=== PATIENT | male | born 1945 | race Caucasian/White ===

== ENCOUNTER 2019-07-22 11:51 | Inpatient (IN) | payer OTHER ==
[~2019-07-22] VITALS: Ht 187.9 cm; Wt 130.6 kg
[2019-07-22 12:03] VITALS: BP 156/96
[2019-07-22 12:28] LABS: HEMATOCRIT 35.6 % (42.0-52.0); MEAN CELL VOLUME 87.9 fl (80.0-94.0); MEAN CORPUSCULAR HGB 26.4 pg (27.0-31.0); MEAN CORPUSCULAR HGB CONC 30.1 g/dl (33.0-37.0); MEAN PLATELET VOLUME 9.1 fl (9.6-12.3); PLATELET COUNT AUTOMATED 349 10*3/uL (130-400); RED BLOOD COUNT 4.05 10*6/uL (4.50-5.90); RED CELL DISTRI WIDTH 21.8 % (0-14.5); WHITE BLOOD COUNT 14.8 10*3/uL (4.8-10.8)
[2019-07-22 12:38] LABS: ALBUMIN 2.1 gm/dl (3.1-4.5); ALKALINE PHOSPHATASE 118 U/L (45-117); BUN 86 mg/dl (7-24); CHLORIDE 90 mmol/L (98-107); CREATININE 3.76 mg/dL (0.70-1.30); LIPASE 362 U/L (73-393); POTASSIUM 5.9 mmol/L (3.5-5.1); SGOT/AST 17 IU/L (3-35); SGPT/ALT 23 U/L (12-78); SODIUM 126 mmol/L (136-145); TOTAL PROTEIN 7.6 gm/dL (6.4-8.2)
[2019-07-22 12:41] LABS: ACT PARTIAL THROMBO TIME 28.9 SECONDS (20.0-32.1)
[2019-07-22 12:42] LABS: BILIRUBIN NEGATIVE (NEGATIVE); BLOOD 3+ (NEGATIVE); CLARITY CLOUDY (CLEAR); COLOR YELLOW (YELLOW); GLUCOSE NEGATIVE (NEGATIVE); KETONE NEGATIVE (NEGATIVE); LEUKO ESTERASE 3+ (NEGATIVE); NITRITE POSITIVE (NEGATIVE); UROBILINOGEN 0.2 E.U./dl (0.2-1.0)
[2019-07-22 12:43] LABS: TROPONIN I < 0.015 ng/ml (<0.045)
[2019-07-22 12:46] LABS: WBC TNTC wbc/hpf (0-5)
[2019-07-22 12:47] LABS: BACTERIA 4+; RBC TNTC rbc/hpf (0-2)
[2019-07-22 12:49] LABS: TOTAL CELLS COUNTED 100 #CELLS
[2019-07-22 12:55] LABS: PLATELET SUFFICIENCY NORMAL (NORMAL); SCHISTOCYTES FEW
[2019-07-22 15:00] VITALS: BP 128/77
[2019-07-22] MEDS ORDERED: SENSE PAI PO (15:28)
[2019-07-22] MEDS ORDERED: AMMONIUM LACTA227 GM T (15:29)
[2019-07-22] MEDS ORDERED: BISACODYL10 MG R (15:30)
[2019-07-22] MEDS ORDERED: AMINOPHYLLIN200 MG PO (15:31)
[2019-07-22] MEDS ORDERED: FLEET ENEMA EX230 M1 R (15:31)
[2019-07-22] MEDS ORDERED: HEPARIN SO5000 UNIT4 SC (15:32)
[2019-07-22] MEDS ORDERED: LASIX40 MG PO (15:32)
[2019-07-22] MEDS ORDERED: LEVOXYL137 MCG PO (15:34)
[2019-07-22] MEDS ORDERED: Ipratropium Brom3 ML INH (15:34)
[2019-07-22] MEDS ORDERED: METOPROLOL25 MG PO (15:35)
[2019-07-22] MEDS ORDERED: PHILLIPS M400 MG/51 PO (15:36)
[2019-07-22] MEDS ORDERED: MOXIFLOXACIN3 ML OU (15:37)
[2019-07-22] MEDS ORDERED: MIRALAX119 GM PO (15:38)
[2019-07-22] MEDS ORDERED: OMEPRAZOLE40 MG PO (15:38)
[2019-07-22] MEDS ORDERED: PROMOD 946 ML946 ML PO (15:39)
[2019-07-22] MEDS ORDERED: TWOCAL-HN 240 ML8 OZ PEG (15:40)
[2019-07-22 16:00] VITALS: BP 132/84
[2019-07-22 16:21] LABS: CREATININE 3.65 mg/dL (0.70-1.30); POTASSIUM 5.7 mmol/L (3.5-5.1)
[2019-07-22 16:22] LABS: ABG BASE EXCESS 4.3 mmol/L (-2.0-2.0); ARTERIAL BLOOD GAS PH 7.416 (7.35-7.45)
[2019-07-22 17:46] LABS: BILIRUBIN NEGATIVE (NEGATIVE); BLOOD 3+ (NEGATIVE); CLARITY SL CLOUDY (CLEAR); COLOR YELLOW (YELLOW); GLUCOSE NEGATIVE (NEGATIVE); KETONE NEGATIVE (NEGATIVE); LEUKO ESTERASE 3+ (NEGATIVE); NITRITE POSITIVE (NEGATIVE); UROBILINOGEN 0.2 E.U./dl (0.2-1.0)
[2019-07-22 17:52] LABS: BACTERIA 3+; RBC TNTC rbc/hpf (0-2); WBC TNTC wbc/hpf (0-5)
[2019-07-22 19:56] LABS: ABG BASE EXCESS 5.1 mmol/L (-2.0-2.0); ARTERIAL BLOOD GAS PH 7.441 (7.35-7.45)
[2019-07-22 20:00] VITALS: BP 122/81
[2019-07-23] VITALS: BP 110/65; BP 116/73
[2019-07-23 04:00] VITALS: BP 106/66
[2019-07-23 05:10] LABS: CREATININE 2.86 mg/dL (0.70-1.30)
[2019-07-23 05:21] LABS: THYROID STIM HORMONE (HS) 2.44 uIU/ml (0.358-4.75)
[2019-07-23 05:24] LABS: POTASSIUM 4.7 mmol/L (3.5-5.1)
[2019-07-23 06:05] LABS: HEMATOCRIT 31.3 % (42.0-52.0); MEAN CELL VOLUME 87.7 fl (80.0-94.0); MEAN CORPUSCULAR HGB 25.8 pg (27.0-31.0); MEAN CORPUSCULAR HGB CONC 29.4 g/dl (33.0-37.0); MEAN PLATELET VOLUME 9.7 fl (9.6-12.3); PLATELET COUNT AUTOMATED 358 10*3/uL (130-400); RED BLOOD COUNT 3.57 10*6/uL (4.50-5.90); RED CELL DISTRI WIDTH 22.4 % (0-14.5)
[2019-07-23 06:47] LABS: BURR CELLS FEW; OVALOCYTES FEW; PLATELET SUFFICIENCY NORMAL (NORMAL); POLYCHROMASIA SLIGHT; TOTAL CELLS COUNTED 100 #CELLS
[2019-07-23 06:48] LABS: TARGET CELLS FEW
[2019-07-23 07:24] LABS: ABG BASE EXCESS 7.1 mmol/L (-2.0-2.0); ARTERIAL BLOOD GAS PH 7.484 (7.35-7.45)
[2019-07-23 08:00] VITALS: BP 106/70
[2019-07-23 08:59] LABS: VITAMIN D, 25-HYDROXY 55.4 ng/mL (30-100)
[2019-07-23 11:06] LABS: ARTERIAL BLOOD GAS PH 7.511 (7.35-7.45)
[2019-07-23 12:00] VITALS: BP 125/76
[2019-07-23 15:21] LABS: ABG BASE EXCESS 7.7 mmol/L (-2.0-2.0); ARTERIAL BLOOD GAS PH 7.548 (7.35-7.45)
[2019-07-23 16:00] VITALS: BP 135/82
[2019-07-23 20:00] VITALS: BP 125/86
[2019-07-24] VITALS: BP 117/87
[2019-07-24 03:17] LABS: HEMATOCRIT 31.9 % (42.0-52.0); MEAN CELL VOLUME 87.4 fl (80.0-94.0); MEAN CORPUSCULAR HGB 25.5 pg (27.0-31.0); MEAN CORPUSCULAR HGB CONC 29.2 g/dl (33.0-37.0); MEAN PLATELET VOLUME 8.7 fl (9.6-12.3); PLATELET COUNT AUTOMATED 362 10*3/uL (130-400); RED BLOOD COUNT 3.65 10*6/uL (4.50-5.90); RED CELL DISTRI WIDTH 22.2 % (0-14.5); WHITE BLOOD COUNT 9.7 10*3/uL (4.8-10.8)
[2019-07-24 03:31] LABS: CREATININE 1.82 mg/dL (0.70-1.30)
[2019-07-24 03:36] LABS: PLATELET SUFFICIENCY NORMAL (NORMAL); TOTAL CELLS COUNTED 100 #CELLS
[2019-07-24 04:00] VITALS: BP 145/69
[2019-07-24 08:00] VITALS: BP 136/85; BP 139/71
[2019-07-24 09:29] LABS: ABG BASE EXCESS 5.5 mmol/L (-2.0-2.0); ARTERIAL BLOOD GAS PH 7.386 (7.35-7.45)
[2019-07-24 12:00] VITALS: BP 122/80
[2019-07-24 16:00] VITALS: BP 126/73
[2019-07-24 20:00] VITALS: BP 136/83
[2019-07-25] VITALS: BP 148/86
[2019-07-25 04:00] VITALS: BP 113/69
[2019-07-25 05:59] LABS: HEMATOCRIT 31.1 % (42.0-52.0); MEAN CELL VOLUME 88.4 fl (80.0-94.0); MEAN CORPUSCULAR HGB 25.9 pg (27.0-31.0); MEAN CORPUSCULAR HGB CONC 29.3 g/dl (33.0-37.0); MEAN PLATELET VOLUME 9.4 fl (9.6-12.3); PLATELET COUNT AUTOMATED 383 10*3/uL (130-400); RED BLOOD COUNT 3.52 10*6/uL (4.50-5.90); RED CELL DISTRI WIDTH 22.2 % (0-14.5); WHITE BLOOD COUNT 9.4 10*3/uL (4.8-10.8)
[2019-07-25 06:25] LABS: CHLORIDE 101 mmol/L (98-107); CREATININE 1.12 mg/dL (0.70-1.30); POTASSIUM 3.6 mmol/L (3.5-5.1); SODIUM 138 mmol/L (136-145)
[2019-07-25 06:28] LABS: BUN 43 mg/dl (7-24)
[2019-07-25 06:44] LABS: OVALOCYTES FEW; PLATELET SUFFICIENCY NORMAL (NORMAL); ROULEAUX SLIGHT; TOTAL CELLS COUNTED 100 #CELLS
[2019-07-25 06:45] LABS: TOXIC GRANULATION SLIGHT
[2019-07-25 08:00] VITALS: BP 100/76
[2019-07-25] MEDS ORDERED: ERTAPENEM1 GM IV (13:18)
[2019-07-25 14:58] LABS: ABG BASE EXCESS 5.6 mmol/L (-2.0-2.0); ARTERIAL BLOOD GAS PH 7.436 (7.35-7.45)
[2019-07-25 16:00] VITALS: BP 129/87
[2019-07-25 20:00] VITALS: BP 129/87; BP 138/66
[2019-07-26] VITALS: BP 132/85
[2019-07-26 04:00] VITALS: BP 134/88
[2019-07-26 06:00] LABS: HEMATOCRIT 32.7 % (42.0-52.0); MEAN CELL VOLUME 89.3 fl (80.0-94.0); MEAN CORPUSCULAR HGB 25.4 pg (27.0-31.0); MEAN CORPUSCULAR HGB CONC 28.4 g/dl (33.0-37.0); MEAN PLATELET VOLUME 8.8 fl (9.6-12.3); PLATELET COUNT AUTOMATED 374 10*3/uL (130-400); RED BLOOD COUNT 3.66 10*6/uL (4.50-5.90); RED CELL DISTRI WIDTH 21.4 % (0-14.5); WHITE BLOOD COUNT 11.2 10*3/uL (4.8-10.8)
[2019-07-26 06:12] LABS: CHLORIDE 100 mmol/L (98-107); CREATININE 0.89 mg/dL (0.70-1.30); POTASSIUM 3.9 mmol/L (3.5-5.1); SODIUM 135 mmol/L (136-145)
[2019-07-26 06:16] LABS: BUN 28 mg/dl (7-24)
[2019-07-26 07:43] LABS: PLATELET SUFFICIENCY NORMAL (NORMAL); POLYCHROMASIA SLIGHT; TOTAL CELLS COUNTED 100 #CELLS; TOXIC GRANULATION SLIGHT
[2019-07-26 08:00] VITALS: BP 133/73
[2019-07-26 12:00] VITALS: BP 105/65
[2019-07-26 16:00] VITALS: BP 122/74
[2019-07-26 20:00] VITALS: BP 127/79
[2019-07-27] VITALS: BP 112/60
[2019-07-27 05:00] VITALS: BP 120/60
[2019-07-27 08:00] VITALS: BP 132/81
[2019-07-27 12:00] VITALS: BP 103/61
[2019-07-27 16:00] VITALS: BP 112/65
[2019-07-27 20:00] VITALS: BP 113/67
[2019-07-28] VITALS: BP 122/57
[2019-07-28 04:00] VITALS: BP 128/64
[2019-07-28 08:00] VITALS: BP 122/75
[2019-07-28 12:00] VITALS: BP 115/58
[2019-07-28 16:00] VITALS: BP 105/61
== END 2019-07-28 17:35 | disposition other institution (70) | DRG 871 ==
LOC: ED 11:51 → EDHOLD 13:25 → ICCU 13:25
PROVIDERS: Emergency Medicine; Family Medicine; Internal Medicine; Internal Medicine Critical Care Medicine; Internal Medicine Nephrology; ADMIT Internal Medicine
PROC: 5A1945Z Respiratory Ventilation, 24-96 Consecutive Hours (ICD-10-PCS; principal; 2019-07-22)
PROC: 0D20XUZ Change Feeding Device in Upper Intestinal Tract, External Approach (ICD-10-PCS; 2019-07-24)
PROC: 05HC33Z Insertion of Infusion Device into Left Basilic Vein, Percutaneous Approach (ICD-10-PCS; 2019-07-28)
DX: A41.9 Sepsis, unspecified organism (principal); E43 Unspecified severe protein-calorie malnutrition; N17.0 Acute kidney failure with tubular necrosis; G93.41 Metabolic encephalopathy; J96.22 Acute and chronic respiratory failure with hypercapnia; J96.21 Acute and chronic respiratory failure with hypoxia; J18.9 Pneumonia, unspecified organism; N39.0 Urinary tract infection, site not specified; E87.1 Hypo-osmolality and hyponatremia; I13.0 Hypertensive heart and chronic kidney disease with heart failure and stage 1 through stage 4 chronic kidney disease, or unspecified chronic kidney disease; E66.2 Morbid (severe) obesity with alveolar hypoventilation; I50.32 Chronic diastolic (congestive) heart failure; E87.3 Alkalosis; Z99.11 Dependence on respirator [ventilator] status; K94.23 Gastrostomy malfunction; R65.20 Severe sepsis without septic shock; B96.20 Unspecified Escherichia coli [E. coli] as the cause of diseases classified elsewhere; B96.89 Other specified bacterial agents as the cause of diseases classified elsewhere; R47.02 Dysphasia; N18.3 Chronic kidney disease, stage 3 (moderate); J40 Bronchitis, not specified as acute or chronic; D64.9 Anemia, unspecified; E03.9 Hypothyroidism, unspecified; E86.0 Dehydration; R62.7 Adult failure to thrive; R33.9 Retention of urine, unspecified; I48.91 Unspecified atrial fibrillation; Y83.3 Surgical operation with formation of external stoma as the cause of abnormal reaction of the patient, or of later complication, without mention of misadventure at the time of the procedure; Y92.89 Other specified places as the place of occurrence of the external cause; Z93.0 Tracheostomy status; Z87.891 Personal history of nicotine dependence; Z91.09 Other allergy status, other than to drugs and biological substances; Z79.899 Other long term (current) drug therapy; Z22.321 Carrier or suspected carrier of Methicillin susceptible Staphylococcus aureus; Z03.818 Encounter for observation for suspected exposure to other biological agents ruled out; Z68.37 Body mass index [BMI] 37.0-37.9, adult

== ENCOUNTER 2019-08-02 12:42 | Emergency (ER) | payer OTHER ==
[~2019-08-02 12:42] MED LIST: AMINOPHYLLIN200 MG PO; AMMONIUM LACTA227 GM T; BISACODYL10 MG R; ERTAPENEM1 GM IV; FLEET ENEMA EX230 M1 R; HEPARIN SO5000 UNIT4 SC; Ipratropium Brom3 ML INH; LASIX40 MG PO; LEVOXYL137 MCG PO; METOPROLOL25 MG PO; MIRALAX119 GM PO; MOXIFLOXACIN3 ML OU; OMEPRAZOLE40 MG PO; PHILLIPS M400 MG/51 PO; PROMOD 946 ML946 ML PO; SENSE PAI PO; TWOCAL-HN 240 ML8 OZ PEG
--- NOTE | 2019-08-02 14:11 | NUR ---
20G 10CM MIDLINE PLACED LEFT BASILIC VEIN. PATIENT TOLERATED PROCEDURE WELL.
== END 2019-08-02 14:50 ==
LOC: ED 12:42
DX: Z45.2 Encounter for adjustment and management of vascular access device (principal)

== ENCOUNTER 2019-08-03 19:30 | Emergency (ER) | payer OTHER ==
[~2019-08-03] VITALS: Ht 182.8 cm; Wt 136.1 kg
[2019-08-03 20:16] LABS: ABG BASE EXCESS 3.6 mmol/L (-2.0-2.0); ARTERIAL BLOOD GAS PH 7.333 (7.35-7.45)
[2019-08-03 21:07] LABS: HEMATOCRIT 33.6 % (42.0-52.0); MEAN CELL VOLUME 91.1 fl (80.0-94.0); MEAN CORPUSCULAR HGB 26.6 pg (27.0-31.0); MEAN CORPUSCULAR HGB CONC 29.2 g/dl (33.0-37.0); MEAN PLATELET VOLUME 8.8 fl (9.6-12.3); PLATELET COUNT AUTOMATED 409 10*3/uL (130-400); RED BLOOD COUNT 3.69 10*6/uL (4.50-5.90); WHITE BLOOD COUNT 16.3 10*3/uL (4.8-10.8)
[2019-08-03 21:27] LABS: ALBUMIN 2.5 gm/dl (3.1-4.5); ALKALINE PHOSPHATASE 73 U/L (45-117); BUN 27 mg/dl (7-24); CHLORIDE 94 mmol/L (98-107); CREATININE 1.17 mg/dL (0.70-1.30); POTASSIUM 4.4 mmol/L (3.5-5.1); SGOT/AST 13 IU/L (3-35); SGPT/ALT 13 U/L (12-78); SODIUM 135 mmol/L (136-145); TOTAL PROTEIN 7.3 gm/dL (6.4-8.2); TROPONIN I 0.027 ng/ml (<0.045)
[2019-08-03 21:31] LABS: PLATELET SUFFICIENCY HIGH (NORMAL); TOTAL CELLS COUNTED 100 #CELLS
[2019-08-03 21:51] LABS: BILIRUBIN NEGATIVE (NEGATIVE); BLOOD TRACE-INTACT (NEGATIVE); CLARITY SL CLOUDY (CLEAR); COLOR YELLOW (YELLOW); GLUCOSE NEGATIVE (NEGATIVE); KETONE NEGATIVE (NEGATIVE); LEUKO ESTERASE TRACE (NEGATIVE); NITRITE NEGATIVE (NEGATIVE); UROBILINOGEN 0.2 E.U./dl (0.2-1.0)
[2019-08-03 21:54] LABS: BACTERIA 1+; RBC 0-2 rbc/hpf (0-2)
== END 2019-08-04 02:08 | disposition short-term general hospital (02) ==
LOC: ED 19:30
PROVIDERS: Emergency Medicine
DX: R56.9 Unspecified convulsions (principal); I48.91 Unspecified atrial fibrillation; E03.9 Hypothyroidism, unspecified; E66.9 Obesity, unspecified; I13.0 Hypertensive heart and chronic kidney disease with heart failure and stage 1 through stage 4 chronic kidney disease, or unspecified chronic kidney disease; E11.22 Type 2 diabetes mellitus with diabetic chronic kidney disease; N18.9 Chronic kidney disease, unspecified; Z79.4 Long term (current) use of insulin; Z88.8 Allergy status to other drugs, medicaments and biological substances; Z79.899 Other long term (current) drug therapy; Z87.891 Personal history of nicotine dependence